=== PATIENT | female | born 1940 | race Caucasian/White ===

== ENCOUNTER 2017-04-15 12:45 | Inpatient (IN) | payer MEDICARE, OTHER ==
[2017-04-15] MEDS ORDERED: Sodium Chloride 0.9% 100 ML ONE ×2 (13:48→16:25)
[2017-04-15] MEDS ORDERED: Piperacillin/Tazobactam 4.5 GM VIAL ONE (13:48)
[2017-04-15 14:00] LABS: #Basophils 0.1 thou/uL (0.0-0.2); #Eosinphils 0.1 thou/uL (0.0-0.7); #Lymphocytes 0.8 thou/uL (1.20-3.40); #Monocytes 0.8 thou/uL (0.11-0.59); #Neutrophils 12.2 thou/uL (1.40-6.50); %Basophils 0.4 % (0.0-1.0); %Eosinophils 0.9 % (0.0-10.0); %Lymphocytes 5.5 % (21.0-51.0); %Monocytes 5.5 % (0.0-10.0); %Neutrophils 87.7 % (42.0-75.0); Hemoglobin 11.9 g/dL (12.0-16.0); Mean Corpuscular HGB CONC 31.8 g/dL (32.0-36.0); Mean Corpuscular Hemoglobin 32.2 pg (27.0-31.0); Mean Platelet Volume 6.2 fL (7.4-10.4); Platelet Count 173 thou/uL (130-400); RBC Distribution Width 13.8 % (11.5-14.5); Red Blood Cell (RBC) Count 3.68 mill/uL (4.20-5.40)
[2017-04-15 14:16] LABS: ALT (SGPT) 100 U/L (8-55); AST (SGOT) 76 U/L (5-34); Albumin 3.6 g/dL (3.4-4.8); Alkaline Phosphatase 65 U/L (40-150); Anion Gap 13 mmol/L (10-20); BUN (Urea Nitrogen) 37 mg/dL (9.8-20.1); Bilirubin, Total 0.5 mg/dL (0.2-1.2); Calc. Creatinine Clearance 0 mL/min (70-130); Calcium 9.6 mg/dL (7.8-10.44); Carbon Dioxide 32 mmol/L (23-31); Chloride 103 mmol/L (98-107); Estimated GFR-MDRD 55; Globulin 3.2 g/dL (2.4-3.5); Glucose 121 mg/dL (83-110); Potassium 4.7 mmol/L (3.5-5.1); Protein, Total 6.8 g/dL (6.0-8.3); Sodium 143 mmol/L (136-145)
[2017-04-15 14:17] LABS: CKMB 3.3 ng/mL (0-6.6); Troponin I 0.011 ng/mL (< 0.028)
--- NOTE | 2017-04-15 14:37 | ULT ---
VENOUS DOPPLER ULTRASOUND OF THE LEFT LOWER EXTREMITY: HISTORY: Left lower extremity edema and left wrist pain. TECHNIQUE: Alamo scale ultrasound with color flow and spectral Doppler imaging of the deep venous system of the l eft lower extremity is performed. FINDINGS: There is good flow, compression, and augmentation noted in the left common femoral, femoral, deep fem oral, popliteal, posterior tibial, and greater saphenous veins. IMPRESSION: No evidence of deep vein thrombosis in the left lower extremity. POS: HERNAN
--- NOTE | 2017-04-15 14:47 | RAD ---
LEFT LEG 2 VIEWS: HISTORY: Left leg injury, redness, swelling, and pain. FINDINGS/IMPRESSION: The left leg and foot are intact. POS: HERNAN
--- NOTE | 2017-04-15 15:08 | RAD ---
PA AND LATERAL VIEWS CHEST: HISTORY: Dyspnea. Low oxygen saturation. FINDINGS: Comparison is made with the exam of 05/03/16. There is continued elevation of the right hemidiaphragm. There is mild scarring in the right lung. No lobar consolidation, pneumothoraces, or pleural effusions are seen. The heart size is borderline. There is compression of thoracic vertebral body. IMPRESSION: No radiographic evidence of acute cardiopulmonary process. POS: H
[2017-04-15] MEDS ORDERED: Clindamycin/D5W 900 mg/50 ml Premix Bag ONE (15:09)
[2017-04-15] MEDS ORDERED: Vancomycin HCl 500 MG VIAL ONE (16:25)
[2017-04-15] MEDS ORDERED: Acetaminophen 325 MG TAB PO PRN (19:09)
[2017-04-15] MEDS ORDERED: Dextrose 5% in Water 1,000 ML IV PRN (20:26)
[2017-04-15] MEDS ORDERED: Dextrose 50% Abboject 50 ML SYRINGE SLOW IVP PRN (20:26)
[2017-04-15] MEDS ORDERED: Ondansetron HCl/PF 4 MG/2 ML Vial IVP PRN (20:26)
[2017-04-15] MEDS ORDERED: HumaLOG 300 UNITS/3 ML VIAL SC PRN ×2 (20:26)
[2017-04-15] MEDS ORDERED: cloNIDine 0.1 MG TAB PO PRN (20:26)
[2017-04-15] MEDS ORDERED: Ondansetron ODT 4 MG TAB PO PRN (20:26)
[2017-04-15] MEDS ORDERED: hydrALAZINE 20 MG/ML VIAL SLOW IVP PRN (20:26)
[2017-04-15] MEDS ORDERED: Mometasone/Formoterol 120 PUFF INHALER INH SCH (20:45)
[2017-04-15] MEDS: Furosemide 20 MG TAB PO SCH (22:17)
[2017-04-15] MEDS: Famotidine 20 MG TAB PO SCH (22:17)
[2017-04-15] MEDS: cefTRIAXone\\ROCEPHIN 2 GM in Sodium Chloride 0.9% 100 ML IVPB SCH (22:20)
--- NOTE | 2017-04-16 01:39 | HP ---
DATE OF ADMISSION: 04/15/2017 PRIMARY CARE PHYSICIAN: Dr. Alphonse Callahan. CHIEF COMPLAINT: Left leg redness and swelling. HISTORY OF PRESENT ILLNESS: This is a 76-year-old female who presented to [facility] complaining of left lower extremity swelling, pain, and redness which bega n in the last 24 hours. Patient noted the pain and swelling within the last 24 hours and apparently had a fall in her bathroom approximately 72 hours prior to this evaluation. Patient denied any speci fic injuries to the left lower extremity, but states she fell into the tub after getting off her toil et. Patient denied any loss of consciousness, similar incidences in the past or prior history of yessy lulitis. Patient noticed the swelling and redness migrating up her leg to the midcalf and knee regio n. Patient noted a small blister on the back side of her calf with some clear liquid from a blister, after the skin had ruptured. Patient states she had a DVT diagnosed approximately 20 years ago afte r developing pneumonia. Patient states she has been off all blood thinners over 17 years. Patient s tates she is normally ambulatory with a cane, but is able to navigate through her daughter's home wit hout difficulty, where she resides. Patient denied any recent chemical exposure, chronic lower extre mity swelling, or recent nail care. In the emergency room, patient underwent general evaluation incl uding vascular ultrasound of the left lower extremity showing no evidence for DVT. Patient also unde rwent plain radiographs of the tibia and fibula showing no acute process. Patient did receive IV cli ndamycin, Zosyn, and vancomycin as well as a DuoNeb therapy x1 dose. Patient was transferred to [facility] for further evaluation. PAST MEDICAL HISTORY: 1. Chronic obstructive pulmonary disease. 2. Diabetes mellitus, type 2, diet managed. 3. Question of transient ischemic attack. 4. Hypothyroidism. 5. Chronic diastolic dysfunction. 6. Remote tobacco use. PAST SURGICAL HISTORY: 1. Status post bilateral total hip arthroplasty. 2. Status post shoulder surgery. 3. Status post toe surgery. 4. Status post hysterectomy. CURRENT MEDICATIONS: 1. Lasix 20 mg p.o. b.i.d. 2. DuoNebs 3 mL nebulized q.i.d. p.r.n. 3. Levothyroxine 75 mcg p.o. daily. 4. Tramadol 100 mg p.o. b.i.d. p.r.n. 5. Baclofen 10 mg p.o. t.i.d. 6. Aspirin 81 mg 1 tab p.o. daily. ALLERGIES: 1. CODEINE. 2. LATEX. 3. SULFA. FAMILY HISTORY: Positive for sister with ovarian cancer. SOCIAL HISTORY: Former tobacco user, quitting over 12 years prior to this evaluation. No current al cohol or illicit drug use. Patient is retired and , residing with her daughter in [place], [place]. REVIEW OF SYSTEMS: The following complete review of systems was otherwise negative, except as stated per HPI: Constitutional: Weight loss or gain, ability to conduct usual activities. Skin: Rash, i tching. Eyes: Double vision, pain. ENT/Mouth: Nose bleeding, neck stiffness, pain, tenderness. C ardiovascular: Palpitations, dyspnea on exertion, orthopnea. Respiratory: Shortness of breath, whe ezing, cough, hemoptysis, fever, or night sweats. Gastrointestinal: Poor appetite, abdominal pain, heartburn, nausea, vomiting, constipation, or diarrhea. Genitourinary: Urgency, frequency, dysuria, nocturia. Musculoskeletal: Pain, swelling. Neurologic/Psychiatric: Anxiety, depression. Allergy /Immunologic: Skin rash, bleeding tendency. PHYSICAL EXAMINATION: VITAL SIGNS: On admission, blood pressure 125/59, pulse 87, respiratory rate 16, temperature 97.6 de grees Fahrenheit, O2 saturation 95% on 2 liters per minute by nasal cannula. GENERAL APPEARANCE: This is a 76-year-old female, alert and oriented x3, pleasant, convers ant, in no acute distress. HEENT: Pupils are equal, round, and reactive to light and accommodation. Extraocular muscles are in tact. No scleral icterus, no conjunctival injection. Nares patent. OP is clear. Teeth in fair rep air. NECK: Supple, no cervical adenopathy, no thyromegaly, no carotid bruits, no JVD appreciated. Cervic al spine with full active and passive range of motion. CHEST: Diminished breath sounds in the bases bilaterally with occasional expiratory wheezing. CARDIOVASCULAR: S1, S2, without noted murmur. ABDOMEN: Rounded, soft, nontender, nondistended. Bowel sounds are positive in all four quadrants. There is no hepatosplenomegaly, no abdominal bruits, no rebound or guarding appreciated. EXTREMITIES: Left lower extremity with edema and erythema to the left lower extremity from midcalf t o the dorsum of the foot. Positive erythema with extension of erythema to the medial aspect of the l eft thigh to the groin. Positive tenderness to palpation. Small blistering formation on the posteri or calf. Right lower extremity with metabolic edema, no erythema with pulses palpable distally at th e dorsalis pedis, posterior tibial, and popliteal artery. NEUROLOGIC: Cranial nerves II-XII are grossly intact. No focal or lateralizing signs appreciated. The patient not observed ambulatory during this exam. PERTINENT LABORATORY AND X-RAY FINDINGS: Sodium 143, potassium 4.7, chloride 103, CO2 of 32, BUN 37, creatinine 0.99, estimated GFR 55, glucose 121, calcium 9.6, AST 76, ALT of 100, alkaline phosphatas e 65. BNP 113. CBC showed a white blood cell count 14, hemoglobin 11.9, hematocrit 37.3, MCV 101, p latelet count 173 with 88% neutrophilia. Portable chest x-ray dated 02/12/2018 showed no acute cardi opulmonary process. Scarring in the right lung noted. Two views of the left lower tibia and fibula showed no acute process. Vascular ultrasound of the left lower extremity dated 04/15/2017 showed no evidence for DVT. EKG dated 04/15/2017 by my interpretation shows sinus mechanism with heart rates i n the 70s. Attenuated R waves noted in the precordial leads. Normal axis. No acute ST-T wave dennison es appreciated. ASSESSMENT AND PLAN: 1. Acute cellulitis of the left lower extremity. Patient will be admitted to the medical floor. We will continue Rocephin 2 grams IV q.24 hours with additional vancomycin 1 gram IV q.12 hours. Xander nue local wound care and consult Wound Care team for evaluation and monitoring. 2. Chronic obstructive pulmonary disease. No specific evidence of an acute exacerbation. We will r esume home DuoNebs q.i.d. Add Dulera 2 puffs inhaled b.i.d. 3. Continue oxygen supplementation to maintain O2 saturations greater than or equal to 90%. 4. Transaminitis, etiology unclear. We will repeat LFTs in the a.m. 5. Leukocytosis with neutrophilia. We will continue CBC monitoring. Continue treatment as outlined in #1. 6. Diabetes mellitus type 2, diet managed. Insulin sliding scale for reflexive coverage. Accu-Chek s before meals and at bedtime. Check A1c level in the a.m. 7. Prophylaxis. Hold SCDs. Initiate Lovenox 40 mg subcutaneously q.24 hours. Pepcid 20 mg p.o. b. i.d. 8. Code status is FULL. Surrogate medical decision maker is the patient's daughter.
[2017-04-16] MEDS ORDERED: Vancomycin HCl 500 MG in Sodium Chloride 0.9% 100 ML IVPB SCH (04:00)
[2017-04-16] MEDS: Vancomycin HCl 500 MG in Sodium Chloride 0.9% 100 ML IVPB SCH ×2 (05:25→15:20)
[2017-04-16 05:35] LABS: Band 17 % (5-11); Eosinophils 2 % (0-10); Hemoglobin 12.4 g/dL (12.0-16.0); Lymphocytes 3 % (21-51); MDiff Complete? YES; Mean Corpuscular HGB CONC 30.7 g/dL (32.0-36.0); Mean Corpuscular Hemoglobin 33.1 pg (27.0-31.0); Mean Platelet Volume 7.3 fL (7.4-10.4); Monocytes 5 % (0-10); Neutrophil 73 % (42-75); PLT Morphology Comment Appears Adequate; Platelet Count 192 thou/uL (130-400); RBC Distribution Width 13.1 % (11.5-14.5); Red Blood Cell (RBC) Count 3.75 mill/uL (4.20-5.40); White Blood Cell (WBC) Count 11.7 thou/uL (4.8-10.8)
[2017-04-16] MEDS ORDERED: Levothyroxine Sodium 75 MCG TAB PO SCH (06:00)
[2017-04-16 06:07] LABS: ALT (SGPT) 89 U/L (8-55); AST (SGOT) 71 U/L (5-34); Albumin 3.6 g/dL (3.4-4.8); Alkaline Phosphatase 59 U/L (40-150); Anion Gap 14 mmol/L (10-20); BUN (Urea Nitrogen) 29 mg/dL (9.8-20.1); Bilirubin, Total 0.3 mg/dL (0.2-1.2); Calc. Creatinine Clearance 64 mL/min (70-130); Calcium 9.6 mg/dL (7.8-10.44); Carbon Dioxide 30 mmol/L (23-31); Chloride 104 mmol/L (98-107); Estimated GFR-MDRD 75; Globulin 3.6 g/dL (2.4-3.5); Glucose 79 mg/dL (83-110); Protein, Total 7.2 g/dL (6.0-8.3); Sodium 143 mmol/L (136-145)
[2017-04-16] MEDS ORDERED: Mometasone/Formoterol 120 PUFF INHALER INH SCH (06:30)
[2017-04-16] MEDS: Famotidine 20 MG TAB PO SCH ×2 (08:24→21:54)
[2017-04-16] MEDS: Furosemide 20 MG TAB PO SCH (08:24)
[2017-04-16] MEDS: Mometasone/Formoterol 120 PUFF INHALER INH SCH ×2 (08:27→18:39)
[2017-04-16] MEDS ORDERED: Enoxaparin Sodium 40 MG/0.4 ML SYRINGE SC SCH (09:00)
[2017-04-16] MEDS ORDERED: Naproxen 500 MG TAB PO PRN (16:18)
--- NOTE | 2017-04-16 20:10 | PDOC.PN ---
- Subjective Encounter Start Date: 04/16/17 Encounter Start Time: 10:05 Subjective: f/u for LLE cellulitis on current Rocephin and Vancomycin. Some mild -: improvment in redness otherwise no worsening. LLE sono r/o DVT. - Objective Resuscitation Status: Resuscitation Status FULL:Full Resuscitation MAR Reviewed: Yes Vital Signs & Weight: Vital Signs (12 hours) Temp Pulse Pulse Pulse Pulse Resp BP 04/16/17 16:00 98.0 F 83 18 109/72 04/16/17 14:56 89 86 101 H 04/16/17 14:15 88 16 04/16/17 12:25 98.2 F 92 20 100/63 04/16/17 10:23 90 20 04/16/17 08:33 97.6 F 90 14 125/90 04/16/17 08:32 04/16/17 08:28 85 24 H Pulse Ox Pulse Ox Pulse Ox Pulse Ox 04/16/17 16:00 96 04/16/17 14:56 99 100 100 04/16/17 14:15 100 04/16/17 12:25 99 04/16/17 10:23 100 04/16/17 08:33 04/16/17 08:32 95 04/16/17 08:28 97 Weight Admit Weight 140 lb Weight 140 lb I&O: 04/15/17 04/16/17 04/17/17 06:59 06:59 06:59 Intake Total 1180 Balance 1180 Result Diagrams: 04/16/17 04:56 04/16/17 04:56 Additional Labs: Accuchecks 04/16/17 04/16/17 04/16/17 16:55 11:37 04:50 POC Glucose 87 98 71 04/15/17 21:55 POC Glucose 134 H Microbiology 04/15/17 13:55 Venous blood - Right Arm Blood Culture - Preliminary Specimen has been received and culture in progress. No Growth to date. 04/15/17 13:50 Venous blood - Left Arm Blood Culture - Preliminary Specimen has been received and culture in progress. No Growth to date. Laboratory Tests 04/15/17 04/15/17 04/16/17 13:55 13:55 04:56 WBC 14.0 H Neutrophils % 87.7 H Neutrophils % (Manual) Band Neuts % (Manual) AST 76 H 71 H ALT 100 H 89 H 04/16/17 04:56 WBC Neutrophils % Neutrophils % (Manual) 73 Band Neuts % (Manual) 17 H AST ALT Radiology Reviewed by me: Yes (LLE sono - no DVT) Phys Exam - Physical Examination Constitutional: NAD HEENT: PERRLA, oral pharynx no lesions Neck: no JVD, supple Respiratory: no wheezing, clear to auscultation bilateral Cardiovascular: RRR Gastrointestinal: soft, non-tender, no distention, positive bowel sounds LLE with erythema from prox thigh to foot, erythema pronounced lower tibia Musculoskeletal: pulses present, edema present Neurological: normal sensation, moves all 4 limbs Psychiatric: A&O x 3 Skin: normal turgor, cap refill <2 seconds Dx/Plan (1) Cellulitis of left lower extremity Code(s): L03.116 - CELLULITIS OF LEFT LOWER LIMB Status: Acute Comment: Continue Rocephin and Vancomycin, local WCT, elevate LLE (2) COPD (chronic obstructive pulmonary disease) Status: Chronic Qualifiers: COPD type: unspecified COPD Qualified Code(s): J44.9 - Chronic obstructive pulmonary disease, unspecified Comment: Resume Duonebs, Dulera, Flonase (3) Diabetes mellitus type 2, diet-controlled Code(s): E11.9 - TYPE 2 DIABETES MELLITUS WITHOUT COMPLICATIONS Status: Chronic Comment: Diet managed, serial accuchecks (4) Hypothyroidism Code(s): E03.9 - HYPOTHYROIDISM, UNSPECIFIED Status: Chronic Qualifiers: Hypothyroidism type: unspecified Qualified Code(s): E03.9 - Hypothyroidism , unspecified Comment: Resume Synthroid 37.5mcg daily (5) Transaminitis Code(s): R74.0 - NONSPEC ELEV OF LEVELS OF TRANSAMNS & LACTIC ACID DEHYDRGNSE Status: Acute Comment: Improved, likely due to infectious process, serial monitoring - Plan continue antibiotics, PT/OT, social research assistant, out of bed/ambulate Stable overall -: Continue Rocephin and Vancomycin -: WCT for local care -: Resume home regimen for COPD -: AM lab: CMP, CBC * .
[2017-04-16] MEDS: cefTRIAXone\\ROCEPHIN 2 GM in Sodium Chloride 0.9% 100 ML IVPB SCH (21:53)
[2017-04-16] MEDS: Fluticasone Propionate Nasal Spray 16 gm Bottle NASAL SCH (21:54)
[2017-04-17 03:35] LABS: Vancomycin, Trough 7.6 ug/mL
[2017-04-17 03:37] LABS: ALT (SGPT) 64 U/L (8-55); AST (SGOT) 35 U/L (5-34); Albumin 3.3 g/dL (3.4-4.8); Alkaline Phosphatase 55 U/L (40-150); Anion Gap 11 mmol/L (10-20); BUN (Urea Nitrogen) 20 mg/dL (9.8-20.1); Bilirubin, Total 0.3 mg/dL (0.2-1.2); Calc. Creatinine Clearance 74 mL/min (70-130); Calcium 9.5 mg/dL (7.8-10.44); Carbon Dioxide 33 mmol/L (23-31); Chloride 104 mmol/L (98-107); Estimated GFR-MDRD 89; Globulin 3.2 g/dL (2.4-3.5); Glucose 85 mg/dL (83-110); Potassium 4.5 mmol/L (3.5-5.1); Protein, Total 6.5 g/dL (6.0-8.3); Sodium 143 mmol/L (136-145)
[2017-04-17 03:39] LABS: Band 13 % (5-11); Hemoglobin 11.2 g/dL (12.0-16.0); Lymphocytes 6 % (21-51); MDiff Complete? YES; Mean Corpuscular HGB CONC 31.1 g/dL (32.0-36.0); Mean Corpuscular Hemoglobin 33.5 pg (27.0-31.0); Mean Platelet Volume 6.9 fL (7.4-10.4); Monocytes 8 % (0-10); Neutrophil 73 % (42-75); Platelet Count 190 thou/uL (130-400); Red Blood Cell (RBC) Count 3.34 mill/uL (4.20-5.40); White Blood Cell (WBC) Count 8.3 thou/uL (4.8-10.8)
[2017-04-17] MEDS: Vancomycin HCl 500 MG in Sodium Chloride 0.9% 100 ML IVPB SCH (03:54)
[2017-04-17] MEDS: Vancomycin HCl 1 GM in Premix Bag 1 BAG IVPB SCH ×2 (03:56→16:18)
[2017-04-17 04:40] LABS: Clarity TURBID (Clear); Protein, Urine (Dipstick) 100 mg/dL (Neg-Trace); Specific Gravity, Urine 1.024 (1.002-1.036); pH, Urine 7.5 (5.0-9.0)
[2017-04-17 04:43] LABS: Bacteria/HPF None Seen HPF (None Seen); Hyaline Casts/LPF 0-3 HYALINE CAST LPF (0-3 Hyaline); RBC/HPF GREATER THAN 50-TNTC HPF (0-3); Squamous Epithelial 0-3 HPF (0-3); WBC/HPF 21-50 HPF (0-3)
[2017-04-17 04:49] LABS: Bilirubin Unable to Interpret (Negative); Blood, Urine Unable to Interpret (Negative); Glucose, Urine (Dipstick) Unable to Interpret mg/dL (Negative); Leukocyte Unable to Interpret (Negative); Nitrite Unable to Interpret (Negative); Urobilinogen UNABLE TO INTERPRET mg/dL (0.2-1.0)
[2017-04-17 05:00] LABS: Yeast-All Forms None Seen HPF (None Seen)
[2017-04-17] MEDS: Mometasone/Formoterol 120 PUFF INHALER INH SCH ×2 (06:45→18:33)
[2017-04-17] MEDS: Levothyroxine Sodium 75 MCG TAB PO SCH (07:17)
[2017-04-17] MEDS: Famotidine 20 MG TAB PO SCH ×2 (09:08→20:42)
[2017-04-17] MEDS: Loratadine 10 MG TAB PO SCH (09:08)
[2017-04-17] MEDS: Magnesium Oxide 250 MG TAB PO SCH (09:08)
[2017-04-17] MEDS: Azelastine 137 MCG/Spray 30 ML NS SCH (09:09)
--- NOTE | 2017-04-17 16:49 | PDOC.PN ---
- Subjective Encounter Start Date: 04/17/17 Encounter Start Time: 16:30 Subjective: f/u LLE cellulitis on Vanc and Rocephin. Still has redness and swelling -: but no fever. - Objective Resuscitation Status: Resuscitation Status FULL:Full Resuscitation MAR Reviewed: Yes Vital Signs & Weight: Vital Signs (12 hours) Temp Pulse Resp BP Pulse Ox 04/17/17 14:40 100 18 93 L 04/17/17 12:49 98.1 F 90 18 105/68 88 L 04/17/17 10:01 92 16 99 04/17/17 08:00 98.1 F 99 16 111/70 96 04/17/17 06:43 91 18 96 Weight Admit Weight 140 lb Weight 140 lb I&O: 04/16/17 04/17/17 04/18/17 06:59 06:59 06:59 Intake Total 1180 240 Balance 1180 240 Result Diagrams: 04/17/17 03:08 04/17/17 03:08 Additional Labs: Accuchecks 04/17/17 04/17/17 04/16/17 11:47 04:53 20:47 POC Glucose 83 103 115 H 04/16/17 16:55 POC Glucose 87 Microbiology 04/15/17 13:55 Venous blood - Right Arm Blood Culture - Preliminary Specimen has been received and culture in progress. No Growth to date. 04/15/17 13:55 Venous blood - Right Arm Blood Culture - Preliminary NO GROWTH AT 48 HOURS 04/15/17 13:50 Venous blood - Left Arm Blood Culture - Preliminary Specimen has been received and culture in progress. No Growth to date. 04/15/17 13:50 Venous blood - Left Arm Blood Culture - Preliminary NO GROWTH AT 48 HOURS Laboratory Tests 04/15/17 04/15/17 04/16/17 13:55 13:55 04:56 WBC 14.0 H Neutrophils % 87.7 H Neutrophils % (Manual) Band Neuts % (Manual) AST 76 H 71 H ALT 100 H 89 H 04/16/17 04:56 WBC Neutrophils % Neutrophils % (Manual) 73 Band Neuts % (Manual) 17 H AST ALT Phys Exam - Physical Examination Constitutional: NAD smiling HEENT: PERRLA Neck: no JVD, supple Respiratory: no wheezing, clear to auscultation bilateral Cardiovascular: RRR Gastrointestinal: soft, non-tender, no distention, positive bowel sounds LLE with edema and erythema from below the knee to ankle, margins less distinct Neurological: moves all 4 limbs Psychiatric: A&O x 3 Skin: normal turgor, cap refill <2 seconds Dx/Plan (1) Cellulitis of left lower extremity Code(s): L03.116 - CELLULITIS OF LEFT LOWER LIMB Status: Acute Comment: Continue Rocephin and Vancomycin, local WCT, elevate LLE (2) COPD (chronic obstructive pulmonary disease) Status: Chronic Qualifiers: COPD type: unspecified COPD Qualified Code(s): J44.9 - Chronic obstructive pulmonary disease, unspecified Comment: Resume Duverenice, [place] (3) Diabetes mellitus type 2, diet-controlled Code(s): E11.9 - TYPE 2 DIABETES MELLITUS WITHOUT COMPLICATIONS Status: Chronic Comment: Diet managed, serial accuchecks (4) Hypothyroidism Code(s): E03.9 - HYPOTHYROIDISM, UNSPECIFIED Status: Chronic Qualifiers: Hypothyroidism type: unspecified Qualified Code(s): E03.9 - Hypothyroidism , unspecified Comment: Resume Synthroid 37.5mcg daily (5) Transaminitis Code(s): R74.0 - NONSPEC ELEV OF LEVELS OF TRANSAMNS & LACTIC ACID DEHYDRGNSE Status: Acute Comment: Improved, likely due to infectious process, serial monitoring (6) Hematuria Code(s): R31.9 - HEMATURIA, UNSPECIFIED Status: Acute Comment: Likely secondary to ASA, Lovenox and Naproxen, d/c Lovenox and hold Naproxen, monitor for recurrence - Plan Continue Rocephin and Vancomycin, slow clinical improvement -: D/C Lovenox -: D/C Naproxen -: Continue Dulera, Duonebs -: AM lab: BMP, CBC * .
[2017-04-17] MEDS: Fluticasone Propionate Nasal Spray 16 gm Bottle NASAL SCH (20:42)
[2017-04-17] MEDS: cefTRIAXone\\ROCEPHIN 2 GM in Sodium Chloride 0.9% 100 ML IVPB SCH (20:47)
[2017-04-18 03:17] LABS: Band 3 % (5-11); Eosinophils 6 % (0-10); Hemoglobin 11.3 g/dL (12.0-16.0); Lymphocytes 17 % (21-51); MDiff Complete? YES; Mean Corpuscular HGB CONC 31.3 g/dL (32.0-36.0); Mean Corpuscular Hemoglobin 33.5 pg (27.0-31.0); Mean Platelet Volume 6.6 fL (7.4-10.4); Monocytes 9 % (0-10); Neutrophil 65 % (42-75); Platelet Count 193 thou/uL (130-400); RBC Distribution Width 12.7 % (11.5-14.5); Red Blood Cell (RBC) Count 3.38 mill/uL (4.20-5.40); White Blood Cell (WBC) Count 6.1 thou/uL (4.8-10.8)
[2017-04-18 03:29] LABS: Anion Gap 12 mmol/L (10-20); BUN (Urea Nitrogen) 16 mg/dL (9.8-20.1); Calc. Creatinine Clearance 76 mL/min (70-130); Calcium 9.9 mg/dL (7.8-10.44); Carbon Dioxide 32 mmol/L (23-31); Chloride 104 mmol/L (98-107); Estimated GFR-MDRD Greater than 90; Glucose 96 mg/dL (83-110); Potassium 4.7 mmol/L (3.5-5.1); Sodium 143 mmol/L (136-145)
[2017-04-18] MEDS: Vancomycin HCl 1 GM in Premix Bag 1 BAG IVPB SCH ×2 (04:51→18:14)
[2017-04-18] MEDS: Levothyroxine Sodium 75 MCG TAB PO SCH (04:55)
[2017-04-18] MEDS: Mometasone/Formoterol 120 PUFF INHALER INH SCH ×2 (06:45→19:08)
[2017-04-18] MEDS: Loratadine 10 MG TAB PO SCH (09:07)
[2017-04-18] MEDS: Famotidine 20 MG TAB PO SCH ×2 (09:07→21:10)
[2017-04-18] MEDS: Magnesium Oxide 250 MG TAB PO SCH (09:11)
[2017-04-18] MEDS: Azelastine 137 MCG/Spray 30 ML NS SCH (09:11)
--- NOTE | 2017-04-18 14:22 | PDOC.PN ---
- Subjective Encounter Start Date: 04/18/17 Encounter Start Time: 12:45 Subjective: f/u LLE cellulitis. Feels sore but improved overall. Currently on Vanc and -: Rocephin. - Objective Resuscitation Status: Resuscitation Status FULL:Full Resuscitation MAR Reviewed: Yes Vital Signs & Weight: Vital Signs (12 hours) Temp Pulse Resp BP Pulse Ox 04/18/17 13:55 107 H 18 96 04/18/17 10:27 84 14 100 04/18/17 08:00 98.5 F 84 14 112/67 100 04/18/17 06:45 78 16 100 04/18/17 06:43 86 16 100 04/18/17 04:51 97 Weight Admit Weight 140 lb Weight 140 lb I&O: 04/17/17 04/18/17 04/19/17 06:59 06:59 06:59 Intake Total 1180 1160 Balance 1180 1160 Result Diagrams: 04/18/17 02:57 04/18/17 02:57 Additional Labs: Accuchecks 04/18/17 04/18/17 04/17/17 10:57 05:16 20:41 POC Glucose 96 74 111 H 04/17/17 16:35 POC Glucose 126 H Microbiology 04/15/17 13:55 Venous blood - Right Arm Blood Culture - Preliminary Specimen has been received and culture in progress. No Growth to date. 04/15/17 13:55 Venous blood - Right Arm Blood Culture - Preliminary NO GROWTH AT 48 HOURS 04/15/17 13:50 Venous blood - Left Arm Blood Culture - Preliminary Specimen has been received and culture in progress. No Growth to date. 04/15/17 13:50 Venous blood - Left Arm Blood Culture - Preliminary NO GROWTH AT 48 HOURS Laboratory Tests 04/15/17 04/15/17 04/16/17 13:55 13:55 04:56 WBC 14.0 H Neutrophils % 87.7 H Neutrophils % (Manual) Band Neuts % (Manual) AST 76 H 71 H ALT 100 H 89 H Vancomycin Trough 04/16/17 04/18/17 04:56 02:57 WBC Neutrophils % Neutrophils % (Manual) 73 Band Neuts % (Manual) 17 H AST ALT Vancomycin Trough 13.0 Phys Exam - Physical Examination Constitutional: NAD HEENT: PERRLA, oral pharynx no lesions Neck: no JVD, supple Respiratory: no wheezing, clear to auscultation bilateral Cardiovascular: RRR Gastrointestinal: soft, non-tender, no distention, positive bowel sounds LLE erythema improved, mild edema persists Musculoskeletal: pulses present, edema present Neurological: normal sensation, moves all 4 limbs Psychiatric: A&O x 3 Skin: normal turgor, cap refill <2 seconds Dx/Plan (1) Cellulitis of left lower extremity Code(s): L03.116 - CELLULITIS OF LEFT LOWER LIMB Status: Acute Comment: Continue Rocephin and Vancomycin, local WCT, elevate LLE (2) COPD (chronic obstructive pulmonary disease) Status: Chronic Qualifiers: COPD type: unspecified COPD Qualified Code(s): J44.9 - Chronic obstructive pulmonary disease, unspecified Comment: Resume Duonebs, Bennyera, Flonase (3) Diabetes mellitus type 2, diet-controlled Code(s): E11.9 - TYPE 2 DIABETES MELLITUS WITHOUT COMPLICATIONS Status: Chronic Comment: Diet managed, serial accuchecks (4) Hypothyroidism Code(s): E03.9 - HYPOTHYROIDISM, UNSPECIFIED Status: Chronic Qualifiers: Hypothyroidism type: unspecified Qualified Code(s): E03.9 - Hypothyroidism , unspecified Comment: Resume Synthroid 37.5mcg daily (5) Transaminitis Code(s): R74.0 - NONSPEC ELEV OF LEVELS OF TRANSAMNS & LACTIC ACID DEHYDRGNSE Status: Acute Comment: Improved, likely due to infectious process, serial monitoring (6) Hematuria Code(s): R31.9 - HEMATURIA, UNSPECIFIED Status: Acute Comment: Likely secondary to ASA, Lovenox and Naproxen, d/c Lovenox and hold Naproxen, monitor for recurrence - Plan plan discussed w/ family, continue antibiotics, respiratory therapy, out of bed/ ambulate Stable currently -: Continue Vancomycin and Rocephin -: Continue Duonebs, Dulera and O2 supplementation -: OOB/ambulate -: Likely home in 24-48h on po abx * .
[2017-04-18] MEDS: cefTRIAXone\\ROCEPHIN 2 GM in Sodium Chloride 0.9% 100 ML IVPB SCH (21:09)
[2017-04-18] MEDS: Fluticasone Propionate Nasal Spray 16 gm Bottle NASAL SCH (21:10)
[2017-04-19] MEDS: Levothyroxine Sodium 75 MCG TAB PO SCH (05:22)
[2017-04-19] MEDS: Vancomycin HCl 1 GM in Premix Bag 1 BAG IVPB SCH (05:22)
[2017-04-19] MEDS: Mometasone/Formoterol 120 PUFF INHALER INH SCH ×2 (08:16→18:29)
[2017-04-19] MEDS: Loratadine 10 MG TAB PO SCH (10:35)
[2017-04-19] MEDS: Magnesium Oxide 250 MG TAB PO SCH (10:35)
[2017-04-19] MEDS: Famotidine 20 MG TAB PO SCH ×2 (10:35→20:06)
[2017-04-19] MEDS: Azelastine 137 MCG/Spray 30 ML NS SCH (10:35)
--- NOTE | 2017-04-19 12:18 | PDOC.PN ---
- Subjective Encounter Start Date: 04/19/17 Encounter Start Time: 09:20 Pt seen for followup re: cellulitis. feels better. No fevers or chills. - Objective Resuscitation Status: Resuscitation Status FULL:Full Resuscitation MAR Reviewed: Yes Vital Signs & Weight: Vital Signs (12 hours) Temp Pulse Resp BP Pulse Ox 04/19/17 08:16 96 16 04/19/17 08:00 98.1 F 96 18 147/87 H 04/19/17 03:36 96 Weight Admit Weight 140 lb Weight 140 lb I&O: 04/18/17 04/19/17 04/20/17 06:59 06:59 06:59 Intake Total 1160 600 Balance 1160 600 Result Diagrams: 04/18/17 02:57 04/18/17 02:57 Additional Labs: Accuchecks 04/19/17 04/19/17 04/18/17 11:28 06:10 21:17 POC Glucose 86 122 H 106 04/18/17 16:32 POC Glucose 101 Phys Exam - Physical Examination Constitutional: NAD HEENT: moist MMs Neck: supple Respiratory: clear to auscultation bilateral Cardiovascular: RRR Gastrointestinal: soft Musculoskeletal: pulses present Neurological: moves all 4 limbs Psychiatric: normal affect Deviation from normal: LLE rash Dx/Plan (1) Cellulitis of left lower extremity Code(s): L03.116 - CELLULITIS OF LEFT LOWER LIMB Status: Acute (2) COPD (chronic obstructive pulmonary disease) Status: Chronic Qualifiers: COPD type: unspecified COPD Qualified Code(s): J44.9 - Chronic obstructive pulmonary disease, unspecified (3) Diabetes mellitus type 2, diet-controlled Code(s): E11.9 - TYPE 2 DIABETES MELLITUS WITHOUT COMPLICATIONS Status: Chronic (4) Hypothyroidism Code(s): E03.9 - HYPOTHYROIDISM, UNSPECIFIED Status: Chronic Qualifiers: Hypothyroidism type: unspecified Qualified Code(s): E03.9 - Hypothyroidism , unspecified - Plan continue antibiotics, out of bed/ambulate * . Leucocytosis has resolved. Start oral antibiotics, discontinue IV antibiotics. Ambulate patient. Monitor vital signs, titrate antihypertensives as needed. Continue synthroid. Continue accuchecks. Review of Systems - Review of Systems Respiratory: negative: Cough, Dry, Shortness of Breath, Hemoptysis, SOB with Excertion, Pleuritic Pain, Sputum, Wheezing Cardiovascular: negative: chest pain, palpitations, orthopnea, paroxysmal nocturnal dyspnea, edema, light headedness - Medications/Allergies Allergies/Adverse Reactions: Allergies Allergy/AdvReac Type Severity Reaction Status Date / Time codeine Allergy Emesis Verified 04/15/17 20:45 latex Allergy Verified 04/15/17 20:44 Sulfa (Sulfonamide Allergy Emesis Verified 04/15/17 20:45 Antibiotics) Medications: Current Medications Acetaminophen (Tylenol) 1,000 mg PO Q6H PRN PRN Reason: Headache/Fever or Mild Pain Albuterol/Ipratropium (Duoneb) 3 ml EZPAP QID-RT [facility] Last Admin: 04/19/17 08:16 Dose: 3 ml Aspirin (Aspirin Chewable) 81 mg PO DAILY [facility] Last Admin: 04/19/17 10:35 Dose: 81 mg Azelastine HCl (Azelastine) 0 ml NS QAM [facility] Last Admin: 04/19/17 10:35 Dose: 1 spr Cephalexin (Keflex) 500 mg PO QID [facility] Clonidine (Catapres) 0.1 mg PO Q4H PRN PRN Reason: Systolic BP > 180 Dextrose/Water (Dextrose 50%) 25 gm SLOW IVP PRN PRN PRN Reason: Hypoglycemia Famotidine (Pepcid) 20 mg PO BID [facility] Last Admin: 04/19/17 10:35 Dose: 20 mg Fluticasone Propionate (Flonase Nasal [place]) 0 gm NASAL HS [facility] Last Admin: 04/18/17 21:10 Dose: 1 spr Glucagon (Glucagon) 1 mg IM PRN PRN PRN Reason: Hypoglycemia Hydralazine HCl (Apresoline) 10 mg SLOW IVP Q4H PRN PRN Reason: Systolic BP > 180 Dextrose/Water (D5w) 1,000 mls @ 0 mls/hr IV .Q0M PRN; As Directed PRN Reason: Hypoglycemia Insulin Human Lispro (Humalog) 0 units SC .MILD SLIDING SCALE PRN PRN Reason: Mild Correctional Scale Insulin Human Lispro (Humalog) 0 units SC .BEDTIME SLIDING SC PRN PRN Reason: Bedtime Correctional Scale Levothyroxine Sodium (Synthroid) 37.5 mcg PO 0600 [facility] Last Admin: 04/19/17 05:22 Dose: 37.5 mcg Loratadine (Claritin) 10 mg PO QAM [facility] Last Admin: 04/19/17 10:35 Dose: 10 mg Magnesium Oxide (Magnesium Oxide) 250 mg PO QAM [facility] Last Admin: 04/19/17 10:35 Dose: 250 mg Mometasone Furoate/Formoterol Fumar (Dulera 200 Mcg/5 Mcg Inhaler) 2 puff INH BID-RT [facility] Last Admin: 04/19/17 08:16 Dose: 2 puff Ondansetron HCl (Zofran Odt) 4 mg PO Q6H PRN PRN Reason: Nausea/Vomiting Ondansetron HCl (Zofran) 4 mg IVP Q6H PRN PRN Reason: Nausea/Vomiting Sodium Chloride (Flush - Normal Saline) 10 ml IVF Q12HR [facility] Last Admin: 04/19/17 10:36 Dose: Not Given Sodium Chloride (Flush - Normal Saline) 10 ml IVF PRN PRN PRN Reason: Saline Flush
[2017-04-19] MEDS ORDERED: Cephalexin 250 MG/5 ML Oral Suspension PO SCH (13:00)
[2017-04-19] MEDS: Cephalexin 250 MG CAP PO SCH ×3 (14:54→20:06)
[2017-04-19] MEDS: Fluticasone Propionate Nasal Spray 16 gm Bottle NASAL SCH (20:07)
[2017-04-20] MEDS: Levothyroxine Sodium 75 MCG TAB PO SCH (05:08)
[2017-04-20] MEDS: Mometasone/Formoterol 120 PUFF INHALER INH SCH ×2 (07:52→19:03)
[2017-04-20] MEDS: Famotidine 20 MG TAB PO SCH ×2 (10:40→21:03)
[2017-04-20] MEDS: Magnesium Oxide 250 MG TAB PO SCH (10:40)
[2017-04-20] MEDS: Loratadine 10 MG TAB PO SCH (10:40)
[2017-04-20] MEDS: Cephalexin 250 MG CAP PO SCH ×4 (10:40→21:03)
[2017-04-20] MEDS: Azelastine 137 MCG/Spray 30 ML NS SCH (10:41)
--- NOTE | 2017-04-20 13:52 | PDOC.PN ---
- Subjective Encounter Start Date: 04/20/17 Encounter Start Time: 09:00 Pt seen for followup re: cellulitis. Sleepy but arousable, denies any complaints. - Objective Resuscitation Status: Resuscitation Status FULL:Full Resuscitation MAR Reviewed: Yes Vital Signs & Weight: Vital Signs (12 hours) Temp Pulse Resp BP Pulse Ox 04/20/17 12:01 97.3 F L 78 18 131/87 96 04/20/17 11:28 78 16 96 04/20/17 08:00 98.1 F 85 18 92 L 04/20/17 07:54 98.1 F 85 18 117/71 92 L 04/20/17 07:51 85 16 92 L 04/20/17 04:00 98.5 F 97 16 143/86 H 97 Weight Admit Weight 140 lb Weight 140 lb I&O: 04/19/17 04/20/17 04/21/17 06:59 06:59 06:59 Intake Total 600 980 Balance 600 980 Result Diagrams: 04/18/17 02:57 04/18/17 02:57 Additional Labs: Accuchecks 04/20/17 04/20/17 04/19/17 11:25 05:04 20:31 POC Glucose 81 96 128 H 04/19/17 16:43 POC Glucose 99 Phys Exam - Physical Examination Constitutional: NAD HEENT: moist MMs Neck: supple Respiratory: clear to auscultation bilateral Cardiovascular: RRR Neurological: moves all 4 limbs Psychiatric: normal affect Dx/Plan (1) Cellulitis of left lower extremity Code(s): L03.116 - CELLULITIS OF LEFT LOWER LIMB Status: Acute (2) COPD (chronic obstructive pulmonary disease) Status: Chronic Qualifiers: COPD type: unspecified COPD Qualified Code(s): J44.9 - Chronic obstructive pulmonary disease, unspecified (3) Diabetes mellitus type 2, diet-controlled Code(s): E11.9 - TYPE 2 DIABETES MELLITUS WITHOUT COMPLICATIONS Status: Chronic (4) Hypothyroidism Code(s): E03.9 - HYPOTHYROIDISM, UNSPECIFIED Status: Chronic Qualifiers: Hypothyroidism type: unspecified Qualified Code(s): E03.9 - Hypothyroidism , unspecified - Plan * . Continue antibiotics as below. Ambulate patient. Continue ISS, accuchecks. Continue synthroid. Review of Systems - Review of Systems Constitutional: negative: fever, chills, sweats, weakness, malaise Respiratory: negative: Cough, Dry, Shortness of Breath, Hemoptysis, SOB with Excertion, Pleuritic Pain, Sputum, Wheezing - Medications/Allergies Allergies/Adverse Reactions: Allergies Allergy/AdvReac Type Severity Reaction Status Date / Time codeine Allergy Emesis Verified 04/15/17 20:45 latex Allergy Verified 04/15/17 20:44 Sulfa (Sulfonamide Allergy Emesis Verified 04/15/17 20:45 Antibiotics) Medications: Current Medications Acetaminophen (Tylenol) 1,000 mg PO Q6H PRN PRN Reason: Headache/Fever or Mild Pain Albuterol/Ipratropium (Duoneb) 3 ml EZPAP QID-RT [facility] Last Admin: 04/20/17 11:28 Dose: 3 ml Aspirin (Aspirin Chewable) 81 mg PO DAILY [facility] Last Admin: 04/20/17 10:40 Dose: 81 mg Azelastine HCl (Azelastine) 0 ml NS QAM [facility] Last Admin: 04/20/17 10:41 Dose: 1 spr Cephalexin (Keflex) 500 mg PO QID [facility] Last Admin: 04/20/17 10:40 Dose: 500 mg Clonidine (Catapres) 0.1 mg PO Q4H PRN PRN Reason: Systolic BP > 180 Dextrose/Water (Dextrose 50%) 25 gm SLOW IVP PRN PRN PRN Reason: Hypoglycemia Famotidine (Pepcid) 20 mg PO BID [facility] Last Admin: 04/20/17 10:40 Dose: 20 mg Fluticasone Propionate (Flonase Nasal [place]) 0 gm NASAL HS [facility] Last Admin: 04/19/17 20:07 Dose: Not Given Glucagon (Glucagon) 1 mg IM PRN PRN PRN Reason: Hypoglycemia Hydralazine HCl (Apresoline) 10 mg SLOW IVP Q4H PRN PRN Reason: Systolic BP > 180 Dextrose/Water (D5w) 1,000 mls @ 0 mls/hr IV .Q0M PRN; As Directed PRN Reason: Hypoglycemia Insulin Human Lispro (Humalog) 0 units SC .MILD SLIDING SCALE PRN PRN Reason: Mild Correctional Scale Insulin Human Lispro (Humalog) 0 units SC .BEDTIME SLIDING SC PRN PRN Reason: Bedtime Correctional Scale Levothyroxine Sodium (Synthroid) 37.5 mcg PO 0600 [facility] Last Admin: 04/20/17 05:08 Dose: 37.5 mcg Loratadine (Claritin) 10 mg PO QAM [facility] Last Admin: 04/20/17 10:40 Dose: 10 mg Magnesium Oxide (Magnesium Oxide) 250 mg PO QAM [facility] [place] Last Admin: 04/20/17 10:40 Dose: 250 mg Mometasone Furoate/Formoterol Fumar (Dulera 200 Mcg/5 Mcg Inhaler) 2 puff INH BID-RT [facility] Last Admin: 04/20/17 07:52 Dose: 2 puff Ondansetron HCl (Zofran Odt) 4 mg PO Q6H PRN PRN Reason: Nausea/Vomiting Ondansetron HCl (Zofran) 4 mg IVP Q6H PRN PRN Reason: Nausea/Vomiting Sodium Chloride (Flush - Normal Saline) 10 ml IVF Q12HR [facility] Last Admin: 04/20/17 10:41 Dose: 10 ml Sodium Chloride (Flush - Normal Saline) 10 ml IVF PRN PRN PRN Reason: Saline Flush
[2017-04-20] MEDS: Acetaminophen 500 MG TAB PO PRN (16:34)
[2017-04-20] MEDS: Fluticasone Propionate Nasal Spray 16 gm Bottle NASAL SCH (21:03)
[2017-04-21] MEDS: Levothyroxine Sodium 75 MCG TAB PO SCH (05:56)
[2017-04-21] MEDS: Acetaminophen 500 MG TAB PO PRN ×2 (06:15→13:38)
[2017-04-21] MEDS: Mometasone/Formoterol 120 PUFF INHALER INH SCH (06:46)
[2017-04-21] MEDS: Cephalexin 250 MG CAP PO SCH ×2 (08:21→13:35)
[2017-04-21] MEDS: Magnesium Oxide 250 MG TAB PO SCH (08:22)
[2017-04-21] MEDS: Loratadine 10 MG TAB PO SCH (08:22)
[2017-04-21] MEDS: Famotidine 20 MG TAB PO SCH (08:22)
[2017-04-21] MEDS: Azelastine 137 MCG/Spray 30 ML NS SCH (08:23)
--- NOTE | 2017-04-21 10:31 | DIS ---
DATE OF ADMISSION: 04/15/2017 DATE OF DISCHARGE: 04/21/2017 PRIMARY CARE PHYSICIAN: Alphonse Callahan M.D. DISCHARGE DIAGNOSIS: 1. Cellulitis of the left lower extremity. 2. Hypoxic respiratory failure CONDITION OF PATIENT AT THE TIME OF DISCHARGE: Stable. I assessed Ms. Kapoor on the day of discharge. She denies any chest pain or shortness of breath. PHYSICAL EXAMINATION: VITAL SIGNS: Stable. HEART: S1 and S2 are heard, regular. LUNGS: Clear to auscultation bilaterally. MUSCULOSKELETAL: Left lower extremity cellulitis has significantly improved. DISCHARGE MEDICATIONS: In addition to her home medications as dictated on history and physical note from 04/15/2017, she is being discharged home on cephalexin 500 mg 4 times a day for 7 more days. HOSPITAL COURSE: Ms. Kapoor is a pleasant 76-year-old lady who was admitted to [facility] on 04/15/2017 for left lower extremity cellulitis. She was initially treated with intravenous antibiotics and subsequently stepped down to oral antibiotics. She was also seen by physical therapist. Patient was also found to be hypoxic, needing supplemental oxygen. Resting room air oxygen saturation was 87%. Case management is making arrangements for home oxygen. She is being discharged home in a stable condition. Many thanks for allowing me to participate in your patient's care. Please feel free to contact me if any questions or concerns. DISCHARGE DISPOSITION: Home. TOTAL AMOUNT OF TIME SPENT COORDINATING THIS DISCHARGE: 32 minutes. RUSTAM
[2017-04-21 12:45] VITALS: BP 107/57; TEMP 97.5
[2017-04-21 14:49] VITALS: BMI 22.2
== END 2017-04-21 16:49 | disposition home or self-care (01) | DRG 602 ==
LOC: SCSER 12:45 → T4-B 15:27
PROVIDERS: ADMIT Family Medicine; ATTEND Family Medicine
DX: L03.116 Cellulitis of left lower limb (principal); J96.91 Respiratory failure, unspecified with hypoxia; D72.0 Genetic anomalies of leukocytes; E11.9 Type 2 diabetes mellitus without complications; E03.9 Hypothyroidism, unspecified; D72.829 Elevated white blood cell count, unspecified; J44.9 Chronic obstructive pulmonary disease, unspecified; R31.9 Hematuria, unspecified; R74.0 Nonspecific elevation of levels of transaminase and lactic acid dehydrogenase [LDH]; Z86.718 Personal history of other venous thrombosis and embolism; Z87.01 Personal history of pneumonia (recurrent); Z86.73 Personal history of transient ischemic attack (TIA), and cerebral infarction without residual deficits; Z87.891 Personal history of nicotine dependence
CPT/HCPCS: 36415; 36416; 71046; 80048; 80053; 80202; 81001; 82553; 83880; 84484; 85007; 85025; 85027; 87040; 93005; 94640; 96365; 96367; A4216; G8978-GP-CJ; G8979-GP-CJ; G8980-GP-CJ; J0696; J1650; J2543; J3370; J3490; J7050; J7620

== ENCOUNTER 2017-07-10 20:30 | Outpatient (CLI) | payer MEDICARE, OTHER | END 2017-07-10 20:31 | disposition home or self-care (01) | LOC: SLEEPLAB 20:30 | PROVIDERS: ATTEND Internal Medicine | DX: G47.33 Obstructive sleep apnea (adult) (pediatric) (principal); R06.83 Snoring; R35.1 Nocturia; J44.9 Chronic obstructive pulmonary disease, unspecified; I10 Essential (primary) hypertension; E11.9 Type 2 diabetes mellitus without complications | CPT/HCPCS: 95811 ==

== ENCOUNTER 2019-03-06 10:32 | Emergency (ER) | payer MEDICARE, OTHER ==
[2019-03-06 11:07] LABS: #Eosinphils 0.2 thou/uL (0.0-0.7); #Lymphocytes 0.9 thou/uL (1.20-3.40); #Monocytes 0.8 thou/uL (0.11-0.59); #Neutrophils 6.8 thou/uL (1.40-6.50); %Basophils 0.4 % (0.0-1.0); %Eosinophils 1.8 % (0.0-10.0); %Monocytes 9.3 % (0.0-10.0); %Neutrophils 78.4 % (42.0-75.0); Hemoglobin 12.9 g/dL (12.0-16.0); Mean Corpuscular HGB CONC 32.5 g/dL (32.0-36.0); Mean Corpuscular Hemoglobin 30.6 pg (27.0-31.0); Mean Platelet Volume 7.2 fL (7.4-10.4); Platelet Count 262 thou/uL (130-400); RBC Distribution Width 11.8 % (11.5-14.5); Red Blood Cell (RBC) Count 4.22 mill/uL (4.20-5.40); White Blood Cell (WBC) Count 8.6 thou/uL (4.8-10.8)
--- NOTE | 2019-03-06 11:20 | RAD ---
Chest one view HISTORY: Fall. Chest injury. COMPARISON: 05/03/2016. FINDINGS: Cardiac silhouette is magnified by projection. Pulmonary vasculature is unremarkable. Media stinum is midline. Thoracic aorta is somewhat tortuous. Right hemidiaphragm remains slightly elevated. Lung parenchymal scarring at the right mid chest is stable. No lobar consolidation or evide nce of pneumothorax. IMPRESSION: No active cardiopulmonary abnormalities are demonstrated.
[2019-03-06 11:28] LABS: ALT (SGPT) 21 U/L (8-55); AST (SGOT) 25 U/L (5-34); Albumin 4.1 g/dL (3.4-4.8); Alkaline Phosphatase 65 U/L (40-110); Anion Gap 11 mmol/L (10-20); BUN (Urea Nitrogen) 22 mg/dL (9.8-20.1); Bilirubin, Total 0.4 mg/dL (0.2-1.2); Calc. Creatinine Clearance 0 mL/min (70-130); Calcium 9.8 mg/dL (7.8-10.44); Carbon Dioxide 31 mmol/L (23-31); Chloride 99 mmol/L (98-107); Estimated GFR-MDRD 59; Globulin 3.3 g/dL (2.4-3.5); Glucose 100 mg/dL (83-110); Lipase 36 U/L (8-78); Potassium 5.1 mmol/L (3.5-5.1); Protein, Total 7.4 g/dL (6.0-8.3); Sodium 136 mmol/L (136-145)
[2019-03-06] MEDS ORDERED: Iopamidol-370 76% 500 ML 1 ML ONE (11:34)
--- NOTE | 2019-03-06 12:46 | RAD ---
XR Thoracic Spine 3 V STANDARD HISTORY: Fall, back pain FINDINGS: Multiple compression abnormalities are seen in the vertebral bodies of the thoracic spine which are a ge indeterminant compression fractures. No subluxation is identified.
--- NOTE | 2019-03-06 12:59 | CT ---
CT ABDOMEN AND PELVIS WITH IV CONTRAST: HISTORY: Fall. Pain in the right upper quadrant. COMPARISON: 05/01/2016 FINDINGS: There is elevation of the right hemidiaphragm with adjacent mild atelectatic change. The liver, splee n, pancreas, adrenal glands and kidneys are intact. No calcified gallstones are seen. There is a 1 cm cyst in the right posterior renal cortex. No free fair or free fluid is noted in the abdomen or pelv is. The small bowel loops are not abnormally dilated. There are bilateral hip arthroplasties in good position and alignment. Artifact reduces the sensitivi ty of the exam with inadequate evaluation of the pelvic contents. Degenerative changes in the spine a re again noted. Compression of the T10-T11 vertebral bodies is stable. IMPRESSION: No CT evidence of solid organ injury. POS: HERNAN
[2019-03-06 13:01] LABS: Bilirubin Negative (Negative); Blood, Urine Negative (Negative); Clarity Clear (Clear); Glucose, Urine (Dipstick) Normal (Negative); Leukocyte Negative Leu/uL (Negative); Nitrite Negative (Negative); Protein, Urine (Dipstick) Negative (Neg-Trace); Urobilinogen Normal mg/dL (Less than 2)
[2019-03-06] MEDS ORDERED: Acetaminophen 500 MG TAB ONE (13:17)
== END 2019-03-06 13:25 | disposition home or self-care (01) ==
LOC: ERS 10:32
DX: M54.6 Pain in thoracic spine (principal); M79.651 Pain in right thigh; R10.11 Right upper quadrant pain
CPT/HCPCS: 71045; 72072; 74177; 80053; 81003; 83690; 85025; 93005; Q9967